=== PATIENT | female | born 1930 | race Caucasian/White ===

== ENCOUNTER 2017-10-18 09:10 | Day surgery (SDC) | payer OTHER ==
[2017-10-18] MEDS ORDERED: Lactated Ringer's 500 ML IV ONE (10:40)
[2017-10-18 11:45] VITALS: BMI 24.7
[2017-10-18] MEDS ORDERED: Propofol 10 mg/ml Inj (20 ML) ONE (13:35)
[2017-10-18 14:09] VITALS: BP 113/68; PULSE 69; RESP 15; TEMP 97; O2SAT 99
== END 2017-10-18 14:20 | disposition home or self-care (01) ==
LOC: H.ENDO 09:10
PROVIDERS: ATTEND Internal Medicine Gastroenterology
DX: R10.13 Epigastric pain (principal); K29.50 Unspecified chronic gastritis without bleeding; K44.9 Diaphragmatic hernia without obstruction or gangrene; J45.909 Unspecified asthma, uncomplicated; E78.5 Hyperlipidemia, unspecified; I10 Essential (primary) hypertension; R06.83 Snoring; I65.29 Occlusion and stenosis of unspecified carotid artery
CPT/HCPCS: 43239; 82948; 88305; J2001; J2704; J7120